=== PATIENT | female | born 1980 | race Caucasian/White ===

== ENCOUNTER 2017-10-26 06:29 | Day surgery (SDC) | payer BC ==
[2017-10-24 16:55] LABS: Absolute Lymphocytes (CBC) 2.5 K/uL (0.7-4.9); Absolute Monocytes 0.4 K/uL (0.1-1.3); Absolute Neutrophil 2.9 K/uL (1.8-8.0); Basophils % 0.5 % (0-1.3); Eosinophils % 3.7 % (0-4.4); Hematocrit 40.5 % (36.0-45.0); Lymphocytes % 40.9 % (15.3-44.8); MCH 29.3 pg (27.0-35.0); MCV 86.8 fL (80-100); MPV 8.5 fL (7.6-11.3); Monocytes % 6.2 % (3.3-12.3); RBC Red Blood Cell Count 4.67 M/uL (3.86-4.86)
[2017-10-24 17:08] LABS: Potassium 4.1 mEq/L (3.6-5.0)
[2017-10-24 17:24] LABS: Albumin 4.2 g/dL (3.2-5.5); Bilirubin Direct 0.1 mg/dL (0-0.2); Bilirubin Total 0.6 mg/dL (0.3-1.2); Protein, Total 6.7 g/dL (6.0-8.3)
[2017-10-26 06:49] LABS: Specific Gravity 1.025 (1.005-1.030)
[2017-10-26] MEDS ORDERED: Ringers Lactate 1,000 ML IV ONE (06:51)
[2017-10-26] MEDS ORDERED: CEFOXITIN/SWI 1gm 1 GM/10 ML SYR ONE (06:51)
[2017-10-26] MEDS ORDERED: PROPOFOL 200 MG/20 ML VIAL IV ONE (07:12)
[2017-10-26] MEDS ORDERED: ROCURONIUM 50 MG/5 ML VIAL IV ONE (07:14)
[2017-10-26] MEDS ORDERED: MIDAZOLAM HCL 2 MG/2 ML INJ ONE (07:14)
[2017-10-26] MEDS ORDERED: LIDOCAINE 2% MPF 5 ML VIAL ONE (07:14)
[2017-10-26] MEDS ORDERED: ONDANSETRON HCL 40 MG/20 ML VIAL ONE (07:15)
[2017-10-26] MEDS ORDERED: FENTANYL CITR 100 MCG/2 ML ONE (07:15)
[2017-10-26] MEDS ORDERED: NEOSTIGMINE 1 MG/ML -5 ML SYRINGE ONE (08:19)
[2017-10-26] MEDS ORDERED: GLYCOPYRROLATE 0.2 MG/ML SYR ONE (08:19)
--- NOTE | 2017-10-26 08:36 | P.BOP ---
Preoperative diagnosis: symptomatic cholelithiasis, biliary dyskinesia Postoperative diagnosis: same Primary procedure: Laparoscopic cholecystectomy Mother Repairer: ASHLEY PATEL Estimated blood loss: <10cc Specimen: gb Findings: as above Anesthesia: General Complications: None Transferred to: Recovery Room Condition: Good
[2017-10-26] MEDS ORDERED: ONDANSETRON 4 MG/2 ML VIAL ONE (08:44)
[2017-10-26] MEDS ORDERED: SCOPOLAMINE HYDROBROMIDE PATCH TD ONE (08:50)
[2017-10-26] MEDS ORDERED: METOCLOPRAMIDE 10 MG/2mL INJ ONE (08:50)
[2017-10-26] MEDS: MEPERIDINE HCL 25 MG/0.5 ML ONE ×2 (08:53→09:00)
[2017-10-26] MEDS ORDERED: MEPERIDINE HCL 25 MG/0.5 ML ONE (09:03)
[2017-10-26] MEDS ORDERED: CODEINE 30MG/APAP 300MG TAB ONE (09:58)
--- NOTE | 2017-10-26 18:46 | OP ---
Date of Procedure: 10/26/2017 Surgeon: Dany Longo MD Diagnostics Tech: Sasha Price. Preoperative Diagnoses: Symptomatic cholelithiasis and biliary dyskinesia. Postoperative Diagnoses: Symptomatic cholelithiasis and biliary dyskinesia. Procedure: Laparoscopic cholecystectomy. Estimated Blood Loss: Less than 10 cc. Specimen: Gallbladder. Indications: This is the case of a 37-year-old patient with above diagnosis. Fully explained the be nefits, alternatives, and risks of laparoscopic, possible open cholecystectomy, which include but are not limited to infection, bleeding, damage to adjacent structures, anesthesia complication, choledoc holithiasis, bile leak, pancreatitis, [place], and even . She also understands this may not relieve any symptoms. She might need more than one surgical intervention. She understood. Signed the conse nt. Description Of Procedure: The patient was brought to the operating room, placed in the supine positi on. Anesthesia was done without complication. A time-out was called. Abdomen was prepped and drape d in sterile fashion. Marcaine 0.5% injected for local anesthetic, followed by sharp incision of the skin in the infraumbilical region. Incision was carried down to fascia, which was opened under dire ct vision. Peritoneum was encountered, opened under direct vision. Vicryl #1 placed inside the fasc ia. Himanshu trocar was carefully introduced. No bleeding was obtained. I placed 3 more trocars in r ight upper quadrant under direct visualization, 5 mm each one of them. I put a grasper in the fundus of the gallbladder, another grasper in the infundibulum, retracted the gallbladder in the inferolate ral fashion, exposing the triangle of Calot and obtaining critical view. The cystic duct and cystic artery were clearly isolated and freed circumferentially, and a connection between those and the gall bladder were clearly identified. I proceeded to ligate those by using at least 3 clips proximal, 1 c lip distal, ligation in middle. Same was done with the cystic artery. No bile leak. No bleeding. The gallbladder was removed from liver using Bovie cauterizer and removed from abdominal cavity using EndoCatch through the umbilical incision. The area was inspected once again. Clips were intact. G allbladder fossa was intact with no bleeding. At that moment, I proceeded to remove the trocars unde r direct vision. Deflated pneumoperitoneum. Closed the fascia with #1 Vicryl, irrigated subcutaneou s tissue, closed that with 3-0 chromic, and skin in a subcuticular fashion with 3-0 chromic and Steri -Strips on top. Sponge count and instrument counts were correct. The patient tolerated the procedur e well. The patient was sent to recovery in stable condition. HAMZAH/LUIS Voice ID: [id number] Report ID: [id number]
--- NOTE | 2017-10-26 18:46 | DS ---
Date of Discharge: 10/26/2017 Diagnoses: Symptomatic cholelithiasis, biliary dyskinesia, right upper quadrant abdominal pain. Procedure: Laparoscopic cholecystectomy. Disposition: Home. Activity: As tolerated. No heavy lifting. Followup in my office 1 week. Call for appointment [phone]. Keep the area dry for 48 hours, then may shower. Keep Steri-Strips intact. Medications: Include Tylenol No. 3 q.4 hours p.r.n. pain and Bactrim DS p.o. b.i.d. HAMZAH/LUIS Voice ID: [id number] Report ID: [id number]
== END 2017-10-26 10:34 | disposition home or self-care (01) ==
LOC: OR 06:29
PROVIDERS: ATTEND Surgery
PROC: 0FT44ZZ Resection of Gallbladder, Percutaneous Endoscopic Approach (ICD-10-PCS; principal; 2017-10-26 07:30)
DX: K80.20 Calculus of gallbladder without cholecystitis without obstruction (principal); Z88.8 Allergy status to other drugs, medicaments and biological substances; Z83.3 Family history of diabetes mellitus; Z82.49 Family history of ischemic heart disease and other diseases of the circulatory system
CPT/HCPCS: 36415; 80048; 80076; 81025; 82150; 83690; 85025; 88305; J2175; J2250; J2405; J2710; J2765; J3010